=== PATIENT | male | born 1955 | race African-American/Black ===

== ENCOUNTER 2017-01-03 10:23 | Emergency (ER) | payer SELFPAY ==
[~2017-01-03] VITALS: Ht 185.4 cm; Wt 91.0 kg
[2017-01-03 10:28] VITALS: BP 150/100
== END 2017-01-03 11:18 | disposition left against medical advice (07) ==
LOC: ER 10:48
DX: G40.89 Other seizures (principal); R41.82 Altered mental status, unspecified
CPT/HCPCS: 99283

== ENCOUNTER 2017-12-14 10:51 | Inpatient (IN) | payer OTHER ==
[~2017-12-14] VITALS: Ht 246.4 cm; Wt 90.3 kg
[2017-12-14] MEDS ORDERED: NITROGLYCERIN OINT 1GM/INCH UDPKT TD STA (11:51)
[2017-12-14] MEDS ORDERED: ONDANSETRON HCL 4MG/2ML VIAL IV STA (11:51)
[2017-12-14] MEDS ORDERED: SODIUM CHLORIDE 0.9% 1,000 ML IV ONE (11:51)
[2017-12-14] MEDS ORDERED: MORPHINE SULFATE 4 MG/ML CPJ (NOT FOR IM USE) IV STA (11:51)
[2017-12-14] MEDS ORDERED: ASPIRIN 81MG TABLET PO ONE (12:00)
[2017-12-14 12:20] LABS: BASOPHILS % 0.5 % (0.0-2.0); EOSINOPHILS % 1.3 % (0.0-5.0); HEMATOCRIT. 41.9 % (42.0-52.0); HEMOGLOBIN. 14.2 g/dL (14.0-18.0); MEAN CORPUSCULAR HEMOGLOBIN 29.7 pg (28.0-32.0); MEAN CORPUSCULAR VOLUME 87.8 fL (80.0-94.0); MEAN PLATELET VOLUME 8.7 fl (7.4-10.4); MONOCYTES % 7.4 % (2.0-8.0); NEUTROPHILS % 62.8 % (40.0-76.0); PLATELET 240 x1000/uL (130-400); RED BLOOD CELL COUNT 4.77 mill/uL (4.7-6.1); RED CELL DISTRIBUTION WIDTH 15.8 % (11.6-14.6)
[2017-12-14 12:26] LABS: CHLORIDE 107 mEq/L (98-107)
[2017-12-14] MEDS ORDERED: KETOROLAC 30MG/ML VIAL IV ONE (15:30)
[2017-12-14] MEDS ORDERED: ONDANSETRON HCL 4MG/2ML VIAL IV PRN (17:15)
[2017-12-14] MEDS ORDERED: CLONIDINE 0.1MG TABLET PO PRN (17:15)
[2017-12-14] MEDS ORDERED: ACETAMINOPHEN 325MG TABLET PO PRN (17:15)
[2017-12-14] MEDS ORDERED: HYDROCODONE/ACETAMINOPHEN 5/325MG TABLET PO PRN (17:30)
[2017-12-14] MEDS: FAMOTIDINE 20MG TABLET PO SCH (21:07)
[2017-12-14 22:10] VITALS: BP 135/103
[2017-12-14] MEDS: MORPHINE SULFATE 4 MG/ML CPJ (NOT FOR IM USE) IV PRN (22:56)
[2017-12-14] MEDS ORDERED: TRAM150C25 PO (23:28)
[2017-12-14] MEDS ORDERED: AMLO5TAB88 PO (23:28)
[2017-12-14] MEDS ORDERED: SIMV40TA5 PO (23:28)
[2017-12-14] MEDS ORDERED: CYCL10TA7 PO (23:28)
[2017-12-14] MEDS ORDERED: TYLENOL#3 PO (23:28)
[2017-12-14 23:31] VITALS: BP 139/96
[2017-12-14 23:33] VITALS: BP 135/103
[2017-12-15 04:00] VITALS: BP 142/87
[2017-12-15 07:42] VITALS: BP 130/108
[2017-12-15] MEDS: FAMOTIDINE 20MG TABLET PO SCH (08:39)
[2017-12-15] MEDS: MORPHINE SULFATE 4 MG/ML CPJ (NOT FOR IM USE) IV PRN (08:46)
[2017-12-15] MEDS ORDERED: ASPIRIN 81MG TABLET PO SCH (09:00)
[2017-12-15] MEDS ORDERED: REGADENOSON 0.4 MG/5 ML IV SCH (09:00)
[2017-12-15] MEDS ORDERED: AMLODIPINE 10MG TABLET PO SCH (09:00)
[2017-12-15] MEDS ORDERED: AMLODIPINE 5MG TABLET PO SCH (09:00)
[2017-12-15] MEDS ORDERED: REGADENOSON 0.4 MG/5 ML IV ONE (10:29)
[2017-12-15 12:00] VITALS: BP 149/103
[2017-12-15 12:11] LABS: *AMPHETAMINES SCREEN URINE NEGATIVE (NEGATIVE); *BARBITURATES SCREEN URINE NEGATIVE (NEGATIVE); *BENZODIAZEPINES SCREEN URINE NEGATIVE (NEGATIVE); *COCAINE SCREEN URINE NEGATIVE (NEGATIVE); METHADONE URINE SCREEN NEGATIVE (NEGATIVE); OPIATES URINE SCREEN PRESUMTIVE POSITIVE (NEGATIVE)
[2017-12-15 12:12] LABS: CANNABINOID URINE SCREEN NEGATIVE (NEGATIVE); PHENCYCLIDINE URINE SCREEN NEGATIVE (NEGATIVE)
[2017-12-15 14:33] VITALS: BP 154/103
[2017-12-15] MEDS ORDERED: ATORVASTATIN CALCIUM 40MG TABLET PO SCH (21:00)
== END 2017-12-15 15:45 | disposition home or self-care (01) | DRG 243 ==
LOC: ER 10:51 → EDBEDREQ 15:45 → 6WST 16:25 → EDBEDREQ 16:31 → ENRESERV 20:07
PROVIDERS: ADMIT Internal Medicine; ATTEND Internal Medicine
DX: K21.9 Gastro-esophageal reflux disease without esophagitis (principal); I10 Essential (primary) hypertension; E78.00 Pure hypercholesterolemia, unspecified; E78.5 Hyperlipidemia, unspecified; F17.210 Nicotine dependence, cigarettes, uncomplicated; R73.03 Prediabetes; Z79.899 Other long term (current) drug therapy; Z71.6 Tobacco abuse counseling
CPT/HCPCS: 36415; 71045; 74176; 78452; 80053; 80061; 80305; 83036; 83690; 83880; 84443; 84484; 85025; 93005; 93017; 96361; 96374; 96375; 99285; A9500; J1885; J2270; J2405; J2785; J7030

== ENCOUNTER 2019-05-16 14:23 | Emergency (ER) | payer OTHER ==
[~2019-05-16] VITALS: Ht 185.4 cm; Wt 100.0 kg
[~2019-05-16 14:23] MED LIST: AMLO5TAB88 PO; CYCL10TA7 PO; SIMV40TA5 PO; TRAM150C25 PO; TYLENOL#3 PO
[2019-05-16 16:15] LABS: BASOPHILS % 1.3 % (0.0-2.0); EOSINOPHILS % 2.3 % (0.0-5.0); HEMATOCRIT. 40.9 % (42.0-52.0); LYMPHOCYTES % 18.5 % (20.0-50.0); MEAN CORPUSCULAR HEMOGLOBIN 30.4 pg (28.0-32.0); MEAN CORPUSCULAR VOLUME 88.9 fL (80.0-94.0); MONOCYTES % 7.7 % (2.0-8.0); NEUTROPHILS % 70.2 % (40.0-76.0); PLATELET 259 x1000/uL (130-400); RED CELL DISTRIBUTION WIDTH 15.1 % (11.6-14.6)
[2019-05-16 16:18] LABS: CHLORIDE 108 mEq/L (98-107)
[2019-05-16] MEDS ORDERED: IOHEXOL-350 100 ML BOTTLE ONE (23:21)
[2019-05-17 01:30] VITALS: BP 108/70
== END 2019-05-17 02:03 | disposition home or self-care (01) ==
LOC: ER 14:23
DX: R10.31 Right lower quadrant pain (principal); R06.6 Hiccough; R06.00 Dyspnea, unspecified; R06.02 Shortness of breath; E78.00 Pure hypercholesterolemia, unspecified; E11.9 Type 2 diabetes mellitus without complications; I10 Essential (primary) hypertension; F17.200 Nicotine dependence, unspecified, uncomplicated; Z79.899 Other long term (current) drug therapy; Z85.46 Personal history of malignant neoplasm of prostate
CPT/HCPCS: 36415; 71045; 71275; 74177; 80053; 83880; 84484; 85025; 93005; 99284; Q9967; Z7610

== ENCOUNTER 2019-12-08 08:02 | Emergency (ER) | payer OTHER ==
[~2019-12-08] VITALS: Ht 185.4 cm; Wt 100.0 kg
[~2019-12-08 08:02] MED LIST changes: +SIMV-46 PO; -SIMV40TA5 PO
[2019-12-08] MEDS ORDERED: KETOROLAC 60MG/2ML VIAL IM STA (08:50)
[2019-12-08 08:58] VITALS: BP 140/97
== END 2019-12-08 11:35 | disposition home or self-care (01) ==
LOC: ER 08:06
DX: M54.16 Radiculopathy, lumbar region (principal); M54.9 Dorsalgia, unspecified; E78.00 Pure hypercholesterolemia, unspecified; I10 Essential (primary) hypertension; Z98.890 Other specified postprocedural states
CPT/HCPCS: 93971; 96372; 99284; J1885

== ENCOUNTER 2020-08-28 07:27 | Emergency (ER) | payer OTHER ==
[~2020-08-28] VITALS: Ht 188 cm; Wt 102.0 kg
[2020-08-28 08:26] LABS: BASOPHILS % 0.4 % (0.0-2.0); HEMATOCRIT. 44.1 % (42.0-52.0); HEMOGLOBIN. 14.6 g/dL (14.0-18.0); LYMPHOCYTES % 16.1 % (20.0-50.0); MEAN CORPUSCULAR HEMOGLOBIN 28.8 pg (28.0-32.0); MEAN CORPUSCULAR VOLUME 86.9 fL (80.0-94.0); MEAN PLATELET VOLUME 8.8 fl (7.4-10.4); MONOCYTES % 8.2 % (2.0-8.0); NEUTROPHILS % 74.3 % (40.0-76.0); PLATELET 208 x1000/uL (130-400); RED BLOOD CELL COUNT 5.08 mill/uL (4.7-6.1); RED CELL DISTRIBUTION WIDTH 15.5 % (11.6-14.6)
[2020-08-28 08:31] LABS: CHLORIDE 103 mEq/L (98-107)
[2020-08-28 08:33] LABS: PROTHROMBIN TIME 10.6 sec (9.6-11.0)
[2020-08-28 08:36] LABS: ETHANOL BLOOD < 10 mg/dL
[2020-08-28 08:39] LABS: CLARITY URINE CLEAR (CLEAR); COLOR URINE YELLOW (YELLOW); KETONES URINE NEGATIVE (NEGATIVE); LEUKOCYTE ESTERASE URINE NEGATIVE (NEGATIVE); NITRITE URINE NEGATIVE (NEGATIVE); OCCULT BLOOD URINE NEGATIVE (NEGATIVE); PROTEIN URINE NEGATIVE (NEGATIVE); SPECIFIC GRAVITY URINE 1.017 (1.005-1.030); UROBILINOGEN URINE 0.2 E.U./dL (0.2-1.0)
[2020-08-28 09:08] LABS: *BARBITURATES SCREEN URINE NEGATIVE (NEGATIVE); *BENZODIAZEPINES SCREEN URINE NEGATIVE (NEGATIVE); *COCAINE SCREEN URINE NEGATIVE (NEGATIVE); METHADONE URINE SCREEN NEGATIVE (NEGATIVE); OPIATES URINE SCREEN NEGATIVE (NEGATIVE)
[2020-08-28 09:09] LABS: *AMPHETAMINES SCREEN URINE NEGATIVE (NEGATIVE); CANNABINOID URINE SCREEN NEGATIVE (NEGATIVE); PHENCYCLIDINE URINE SCREEN NEGATIVE (NEGATIVE)
[2020-08-28] MEDS ORDERED: DOCU100T MT (10:53)
[2020-08-28] MEDS ORDERED: OMEP20TA2 PO (10:53)
[2020-08-28 11:23] VITALS: BP 174/103
== END 2020-08-28 11:25 | disposition home or self-care (01) ==
LOC: ER 07:41
DX: K21.9 Gastro-esophageal reflux disease without esophagitis (principal); I10 Essential (primary) hypertension; E78.00 Pure hypercholesterolemia, unspecified; Z98.890 Other specified postprocedural states
CPT/HCPCS: 36415; 71045; 74176; 80053; 80305; 80320; 81003; 84484; 85025; 93005; 99285; G0480